=== PATIENT | female | born 1960 | race Caucasian/White ===

== ENCOUNTER 2023-12-29 15:48 | Emergency (ER) | payer BC, OTHER ==
[2023-12-29 16:38] LABS: BASOPHILS ABSOLUTE AUTO 0.03 10^3/uL (0.00-0.10); BASOPHILS PERCENT AUTO 0.4 % (0.0-1.0); EOSINOPHILS ABSOLUTE AUTO 0.17 10^3/uL (0.10-0.30); EOSINOPHILS PERCENT AUTO 2.4 % (1.0-3.0); HEMATOCRIT 47.3 % (37.0-47.0); HEMOGLOBIN 16.4 g/dL (12.0-16.0); IMMATURE GRAN ABSOLUTE AUTO 0.01 10^3/uL (0.00-0.50); IMMATURE GRAN PERCENT AUTO 0.1 % (0.0-5.0); LYMPHOCYTES ABSOLUTE AUTO 2.46 10^3/uL (1.00-4.00); LYMPHOCYTES PERCENT AUTO 34.6 % (20.0-40.0); MEAN CORPUSCULAR HEMOGLOBIN 31.8 pg (27.0-31.0); MEAN CORPUSCULAR HGB CONC 34.7 g/dL (32.0-36.0); MEAN CORPUSCULAR VOLUME 91.7 fL (82.0-92.0); MEAN PLATELET VOLUME 9.8 fL (7.4-10.4); MONOCYTES ABSOLUTE AUTO 0.54 10^3/uL (0.10-0.80); MONOCYTES PERCENT AUTO 7.6 % (2.0-8.0); NEUTROPHILS ABSOLUTE AUTO 3.89 10^3/uL (2.50-7.00); NEUTROPHILS PERCENT AUTO 54.9 % (50.0-70.0); PLATELET COUNT,PLT 350 10^3/uL (150-400); RED BLOOD CELL COUNT 5.16 10^6/uL (3.80-5.50); RED CELL DISTRIBUTION WIDTH 12.7 % (11.5-14.5)
[2023-12-29 16:53] LABS: ANION GAP 13.4 mmol/L (5-15); CALCIUM 9.3 mg/dL (8.7-10.3); CARBON DIOXIDE,CO2 28.7 mmol/L (21.0-32.0); CREATININE 0.83 mg/dL (0.51-1.17); EST CRCL DRUG DOSING (CG) 52.35 mL/min; POTASSIUM,K 4.1 mmol/L (3.5-5.1)
[2023-12-29] MEDS: Iopamidol 755 Mg/ML 100 ML Bottle IV ONE (17:57)
[2023-12-29] MEDS: Sodium Chloride 0.9% 50 ML IV SCH (17:57)
== END 2023-12-29 18:25 | disposition home or self-care (01) ==
LOC: KA.ED 15:48
DX: R68.89 Other general symptoms and signs (principal); Z88.8 Allergy status to other drugs, medicaments and biological substances
CPT/HCPCS: 36415; 70487; 80048; 83605; 85025; 86140; 87040; 99284; J3490; Q9967; 99283